=== PATIENT | male | born 1985 | race Caucasian/White ===

== ENCOUNTER 2020-02-09 13:01 | Emergency (ER) | payer SELFPAY ==
[2020-02-09 13:15] VITALS: BP 155/97; PULSE 101; RESP 15; TEMP 36.9; O2SAT 96; BMI 29.9
--- NOTE | 2020-02-09 14:03 | XR_ITS ---
WS: [id number] CERVICAL SPINE TECHNIQUE: 3 views of the cervical spine CLINICAL INFORMATION: neck pain COMPARISON: None. FINDINGS: Mild spondylitic changes. Normal C1-C2 articulation. Anterior hypertrophic changes at C4. Normal prev ertebral soft tissues. Normal C1-C2 articulation XR/XR cervical spine 3V* [id number] IMPRESSION: Mild spondylitic changes. No acute fractures.
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
[2020-02-09 15:15] VITALS: BP 136/68; PULSE 90; RESP 16; O2SAT 100
== END 2020-02-09 15:11 | disposition home or self-care (01) ==
PROVIDERS: Emergency Provider Nurse Practitioner Family
DX: Z04.1 Encounter for examination and observation following transport accident (principal); V49.9XXA Car occupant (driver) (passenger) injured in unspecified traffic accident, initial encounter
CPT/HCPCS: 12345; 72040; 99281; 99282

== ENCOUNTER 2021-05-08 11:52 | Emergency (ER) | payer SELFPAY ==
[2021-05-08 11:56] VITALS: BP 147/106; PULSE 82; RESP 18; TEMP 37.5; O2SAT 100; BMI 28.5
--- NOTE | 2021-05-08 12:05 | W.ED.SKABFB ---
HPI - Skin/Abscess/Foreign Bdy General: Chief complaint: Skin/Abscess/Foreign Body Stated complaint: pain in finger Time Seen by Provider: 05/08/21 11:58 Source: patient Mode of arrival: ambulatory Limitations: no limitations History of Present Illness: HPI narrative: Patient is a 35-year-old male who presents to ED today with a complaint of a possible spider bite/abscess to his right ring finger that [place] Patient feels like possibly he was stung or bitten by something. He states since that time area has progressively worsened with pain, redness, and swelling. No fevers. Reports tetanus is not UTD. complaint: abscess/boil Onset (ago): day(s) Tetanus up to date: no Location: R hand Severity: moderate Pain Consistency: constant Relieving factors: none Exacerbating factors: palpation and movement Associated symptoms: Reports no associated symptoms; Deny chills, fever(s), nausea or vomiting Treatments prior to arrival: none Review of Systems Const: Denies: fever(s), chills, body aches, fatigue or malaise Card: Denies: chest pain Resp: Denies: dyspnea GI: Denies: abdominal pain, nausea or vomiting Musc: Reports: extremity pain (R 4th finger) and extremity swelling (R 4th finger) Neuro: Denies: numbness in extremities or sensory changes Physical Exam Const: COMMON NORMALS: no acute distress, average body habitus, patient oriented x3, no limitations, healthy appearing, alert and well nourished Resp: COMMON NORMALS: normal respiratory effort Cardio: COMMON NORMALS: regular rate and regular rhythm RATE: regular rate RHYTHM: regular rhythm Extremity: GENERAL: Yes normal exam except as noted OTHER: patient has erythema/warmth/swelling/abscess to the dorsal aspect of his proximal phalanx of R 4th finger; erythema/infection does not appear to extend into MCP or PIP joints but he does complain of pain with extension ; infection wraps around onto radial side of digit but does not affect volar surface; negative [place]'s signs Neuro: COMMON NORMALS: patient oriented x3, moves all extremities, no focal motor deficits and no sensory deficits noted SENSORIUM/ORIENTATION: Yes alert Skin: NARRATIVE SKIN EXAM: see extremity assessment for pertinent skin findings Procedures Abscess I/D Site: hand (R 4th finger) Side (if applicable): right Local Anesthetic: lidocaine 1% Amount of anesthesia used (mL): 1.0 Technique: incised with #11 blade Amount of fluid expressed (mL): 2.0 Irrigation: No Packing used?: plain Course Vital Signs: Vital signs: Vital Signs Temperature 99.5 F 05/08/21 11:56 Pulse Rate 81 05/08/21 14:00 Respiratory Rate 18 05/08/21 14:00 Blood Pressure 152/91 05/08/21 14:00 Pulse Oximetry 98 05/08/21 14:00 MDM - Skin/Abscess/Foreign Bdy MDM Narrative: Medical decision making narrative: We had paged Dr. Pulido/[facility] hand surgery but after waiting over an hour and trying yet again we were unable to reach him to secure a follow up appointment. We will have case management fax his information/referral and will have the patient call tomorrow to try and get a follow up appointment. Strict return to ED precautions given if finger does not improve over the next 48 hours and sooner if it worsens. Lab Data: Labs: Lab Results 05/08/21 05/08/21 Range/Units 12:15 12:15 WBC 7.8 (4.0-10.0) 10^3/ uL RBC 5.03 (4.1-5.3) 10^6/u L Hgb 16.5 (11.7-16.6) g/dL Hct 47.6 (42.0-52.0) % MCV 94.6 H (80-94) fl MCH 32.8 (28.0-34.0) pg MCHC 34.7 (30.0-36.0) g/dL RDW 11.2 L (12.1-15.1) % Plt Count 235 (130-400) 10^3/c mm MPV 9.3 (7.4-10.4) fL Neut % (Auto) 76.7 % Lymph % (Auto) 17.2 % Boone % (Auto) 4.2 % Eos % (Auto) 1.3 % Baso % (Auto) 0.5 % Neut # (Auto) 5.96 (1.8-7.7) 10^3/u L Lymph # (Auto) 1.3 (0.8-4.8) 10^3/u L Boone # (Auto) 0.3 (0.2-0.9) 10^3/u L Eos # (Auto) 0.1 (0.0-0.8) 10^3/u L Baso # (Auto) 0.0 (0.0-0.1) 10^3/u L Nucleated RBC % (a uto) 0 % Nucleated RBCs # 0.0 /100WBC Sodium 137 (136-145) mmol/L Potassium 4.0 (3.5-5.1) mmol/L Chloride 100 (98-107) mmol/L Carbon Dioxide 28 (22-29) mmol/L Anion Gap 13.0 (5-19) BUN 9 (6-20) mg/dL Creatinine 0.6 L (0.7-1.2) mg/dL GFR Calculation 151.6 H (90-130) mL/min Glucose 131 H (65-115) mg/dL Calculated Osmolal ity 284 L (285-295) mOsm/k g Calcium 8.8 (8.5-10.5) mg/dL Total Bilirubin 0.4 (0.15-1.2) mg/dL AST 12 (0-40) U/L ALT 14 (0-41) U/L Alkaline Phosphata se 126 (40-130) IU/L C-Reactive Protein 37.3 H (0.0-4.9) mg/L Total Protein 7.0 (6.6-8.7) g/dL Albumin 4.1 (3.5-5.2) g/dL Globulin 2.9 (1.3-4.6) g/dL Imaging Data^: XR R finger: Radiologist's impression: [address] [address] XRay Report Signed Patient: Ronal Kenney Unit #: [id number] : 1985 Age/Sex: 35 / M ADM Date: 05/08/21 Loc: ER Room/Bed: Attending Dr: Ordering Provider/Ordering MD: Bonnie Fierro Date of Service: 05/08/21 Procedure(s): XR finger RT min 2V 39597 Accession Number(s): [id number] Report Number: [id number] PROCEDURE INFORMATION: Exam: XR Right Finger(s) Exam date and time: 05/08/2021 12:04 PM Age: 35 years old Clinical indication: Other: Infection 4th; Additional info: 4th; Infection TECHNIQUE: Imaging protocol: XR Right fingers. Views: Minimum 2 views. Total images: 3 COMPARISON: No relevant prior studies available. FINDINGS: Bones/joints: No acute fracture nor subluxation. No osseous erosion nor periosteal reaction. Soft tissues: Circumferential soft tissue swelling is evident in the 4th digit. XR/XR finger RT min 2V [id number] IMPRESSION: 1. Circumferential soft tissue swelling is evident in the 4th digit. 2. No acute osseous pathology. Dictated By: Javi Hoffman MD Signed By: Javi Hoffman MD Signed Date/Time: 05/08/21 1242 DD/ 1241 Discharge Plan Discharge Patient Disposition: Home Clinical Impression: Abscess of finger of right hand Condition: Stable Prescriptions: New hydrocodone-acetaminophen 5-325 mg tablet 1 tab PO Q4H PRN (Reason: pain) Qty: 20 RF: 0 Bactrim DS 800-160 mg tablet 2 tab PO BID 7 Days Qty: 28 RF: 0 Discharge Orders: Discharge ED (Routine); Ordered 05/08/21 Ordered By: Bonnie Fierro Patient Instructions: Abscess Incision and Drainage (ED), Opioid Safety Activity Restrictions/Additional Instructions: [facility] is committed to fighting the nationwide opiate epidemic. We are providing ALL patients with information regarding opiate safety. If you received opiate pain medication during your stay or if you received a prescription for opiate pain medication-please review this handout. If not, you may disregard. Thank you. Please monitor your abscess for worsening symptoms such as worsening redness, swelling, increased drainage, red streaking, or fevers. If you have been on antibiotics for over 48 hours and continue to worsen you need to immediately return to the emergency department for re-evaluation. If your abscess was incised and drained and packing was placed this can be removed in 72 hours. As we discussed we are actively trying to get you a follow up appointment with hand surgery in case finger does not improve. Contact Dr. Pulido's office tomorrow to get appointment date/time. They should receive your information today. [address] [facility] [address], [place] [address] Coding Level of Care Code ED Pressurizer for Chg Fwd Exam Detailed
[2021-05-08 12:26] LABS: Basophils % 0.5 %; Eosinophils # 0.1 10^3/uL (0.0-0.8); Eosinophils % 1.3 %; Hematocrit 47.6 % (42.0-52.0); Hemoglobin 16.5 g/dL (11.7-16.6); Lymphocytes # 1.3 10^3/uL (0.8-4.8); Lymphocytes % 17.2 %; Mean Corpuscular HGB Conc 34.7 g/dL (30.0-36.0); Mean Corpuscular Hemoglobin 32.8 pg (28.0-34.0); Mean Corpuscular Volume 94.6 fl (80-94); Mean Platelet Volume 9.3 fL (7.4-10.4); Monocytes # 0.3 10^3/uL (0.2-0.9); Monocytes % 4.2 %; Neutrophils # 5.96 10^3/uL (1.8-7.7); Neutrophils % 76.7 %; Nucleated Red Blood Cells % 0 %; Platelet Count 235 10^3/cmm (130-400); Red Blood Count 5.03 10^6/uL (4.1-5.3); Red Cell Distribution Width 11.2 % (12.1-15.1); White Blood Count 7.8 10^3/uL (4.0-10.0)
[2021-05-08 12:30] VITALS: BP 178/84; PULSE 84; RESP 18; O2SAT 96
[2021-05-08] MEDS: tetanus-diphtheria tox (adult) 0.5 mL SDV IM (12:32)
[2021-05-08] MEDS: ceFAZolin 1,000 MG in sodium chloride 0.9% (plus) 50 ML 100 MG IV (12:32)
[2021-05-08 12:43] LABS: Alanine Aminotransferase 14 U/L (0-41); Albumin Level 4.1 g/dL (3.5-5.2); Alkaline Phosphatase 126 IU/L (40-130); Aspartate Amino Transferase 12 U/L (0-40); Blood Urea Nitrogen 9 mg/dL (6-20); C Reactive Protein 37.3 mg/L (0.0-4.9); Calcium 8.8 mg/dL (8.5-10.5); Carbon Dioxide 28 mmol/L (22-29); Chloride 100 mmol/L (98-107); Globulin 2.9 g/dL (1.3-4.6); Glomerular Filtration Rate 151.6 mL/min (90-130); Glucose 131 mg/dL (65-115); Osmolality Calculated 284 mOsm/kg (285-295); Sodium 137 mmol/L (136-145); Total Bilirubin 0.4 mg/dL (0.15-1.2)
[2021-05-08] MEDS: lidocaine 2% INJ 20 mL INJECTION (13:00)
[2021-05-08 14:00] VITALS: BP 152/91; PULSE 81; RESP 18; RESP 20; O2SAT 98
[2021-05-08] MEDS: morphine 4 mg/mL SDV 1 mL IVP (14:00)
--- NOTE | 2021-05-08 14:44 | PC.NURSE ---
applied non stick telfa to 4th digit right hand secured and robin wrapped the last 3 digits with simón and secured with tape
--- NOTE | 2021-05-08 15:52 | DCPLANNER ---
Addendum entered by Louisa Reed 05/10/21 15:14: Patient had a follow up appointment scheduled for 05.10.[address] Pulido - patient did attend appointment. Addendum entered by Louisa Reed 05/09/21 10:28: manager underwriting called and confirmed that the clinic received patients information. manager underwriting was told that clinic did receive the information, and that clinic will call patient with appointment information. Original Note: manager underwriting was asked to refer patient to a hand specialist in [place], at [facility]. manager underwriting faxed patients information to [facility].
== END 2021-05-08 14:51 | disposition home or self-care (01) ==
PROVIDERS: Emergency Provider Physician Assistant
DX: L02.511 Cutaneous abscess of right hand (principal); Z23 Encounter for immunization
CPT/HCPCS: 26010; 73140; 80053; 85025; 86140; 87070; 87075; 87077; 87186; 87205; 90471; 90714; 96365; 96375; 99284; A6446; J0690; J2270

== ENCOUNTER → 2023-09-03 10:17 | Outpatient (BNVA) | payer SELFPAY | PROVIDERS: Visit Provider Nurse Practitioner Family | DX: N48.89 Other specified disorders of penis (principal); R39.89 Other symptoms and signs involving the genitourinary system | CPT/HCPCS: 87491; 87591 ==

== ENCOUNTER 2024-06-08 20:24 | Emergency (ER) | payer SELFPAY ==
[2024-06-08 20:28] VITALS: BP 120/64; PULSE 94; RESP 18; TEMP 36.7; O2SAT 97; BMI 30.7
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
[2024-06-08 20:37] VITALS: BP 120/64; PULSE 80; RESP 23; O2SAT 95
[2024-06-08 20:40] LABS: Basophils % 0.5 %; Eosinophils # 0.1 10^3/uL (0.0-0.8); Eosinophils % 1.2 %; Hematocrit 42.4 % (37-53); Lymphocytes # 2.6 10^3/uL (0.8-4.8); Lymphocytes % 40.4 %; Mean Corpuscular HGB Conc 35.6 g/dL (30-55); Mean Corpuscular Hemoglobin 33.6 pg (27-33); Mean Corpuscular Volume 94.2 fl (82-101); Mean Platelet Volume 9.3 fL (7.4-10.4); Monocytes # 0.5 10^3/uL (0.2-0.9); Monocytes % 7.2 %; Neutrophils # 3.31 10^3/uL (1.8-7.7); Neutrophils % 50.5 %; Nucleated Red Blood Cells % 0 %; Platelet Count 270 10^3/cmm (157-399); Red Cell Distribution Width 11.8 % (12.1-15.1); White Blood Count 6.54 10^3/uL (3.29-11.43)
[2024-06-08] MEDS: fentaNYL 50 mcg/mL INJ 2mL IVP (20:41)
[2024-06-08] MEDS: ondansetron 2 mg/ML SDV 2 mL 4 MG IVP (20:43)
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
[2024-06-08] MEDS: tetanus-dipt-pertussis 0.5 mL SDV IM (20:44)
[2024-06-08] MEDS: ceFAZolin 1,000 mg SDV 1000 MG IVP (20:44)
[2024-06-08] MEDS: sodium chloride 0.9% 1,000 ML 999 ML IV (20:48)
[2024-06-08 20:57] LABS: Alanine Aminotransferase 29 U/L (0-41); Albumin Level 4.4 g/dL (3.5-5.2); Alkaline Phosphatase 86 U/L (40-130); Anion Gap 19.1 (5-19); Aspartate Amino Transferase 26 U/L (0-40); Blood Urea Nitrogen 15 mg/dL (6-20); Calcium 9.5 mg/dL (8.5-10.5); Carbon Dioxide 23 mmol/L (22-29); Chloride 102 mmol/L (98-107); Creatinine Clr Calc Pharmacy 118.1889; Globulin 2.9 g/dL (1.3-4.6); Glomerular Filtration Rate 82.8 mL/min (90-130); Glucose 193 mg/dL (65-115); Osmolality Calculated 296 mOsm/kg (285-295); Potassium 4.1 mmol/L (3.5-5.1); Sodium 140 mmol/L (136-145); Total Bilirubin 0.2 mg/dL (0.15-1.2); Total Protein 7.3 g/dL (6.6-8.7)
[2024-06-08 21:02] VITALS: BP 117/78; PULSE 81; O2SAT 96
[2024-06-08 22:00] VITALS: BP 120/78; PULSE 97; RESP 18; O2SAT 100
[2024-06-08 22:29] VITALS: BP 149/81; PULSE 92; O2SAT 98
--- NOTE | 2024-06-08 22:58 | DCPLANNER ---
Garo at [employer] called back to let us know that 12 out of [place] called and had to decline due to low ceilings. [facility] called [facility] and [facility]- [facility] declined due to low ceiling and [facility] out push connector assembler- Called [facility]- unable to get 4 hours out- Called [facility] they accepted and flight would be out in 40 mins.
== END 2024-06-08 22:27 | disposition short-term general hospital (02) ==
PROVIDERS: Emergency Provider Emergency Medicine
DX: S56.522A Laceration of other extensor muscle, fascia and tendon at forearm level, left arm, initial encounter (principal); S52.602B Unspecified fracture of lower end of left ulna, initial encounter for open fracture type I or II; X99.8XXA Assault by other sharp object, initial encounter; Z23 Encounter for immunization
CPT/HCPCS: 73090; 80053; 85025; 86850; 86900; 90471; 90715; 96361; 96374; 96375; 99285; J0690; J2405; J3010; J7030